=== PATIENT | male | born 1975 | race Caucasian/White ===

== ENCOUNTER 2018-10-29 11:55 | Emergency (ER) | payer MEDICAID, OTHER ==
[2018-10-29] MEDS ORDERED: Bacitracin Oint 1 GM U/D Packet TOP ONE (13:31)
--- NOTE | 2018-10-29 13:31 | EDM.PDOC ---
ED HPI GENERAL MEDICAL PROBLEM - General Chief Complaint: Laceration Stated Complaint: CUT OFF FINGER TIP Time Seen by Provider: 10/29/18 13:26 Source of Information: Reports: Patient, RN Notes Reviewed History Limitations: Reports: No Limitations - History of Present Illness INITIAL COMMENTS - FREE TEXT/NARRATIVE: 43-year-old gentleman presents to the emergency department today with complaint of amputation of his little finger, he injured himself with a hairpiece stylist Ge happened about one hour prior - Related Data Allergies Allergy/AdvReac Type Severity Reaction Status Date / Time Penicillins Allergy Nausea and Verified 10/29/18 13:09 Vomiting Home Meds: Home Meds NK [No Known Home Meds] 10/29/18 [History] Past Medical History - Past Health History Medical/Surgical History: Denies Medical/Surgical History Social & Family History - Tobacco Use Smoking Status *Q: Current Every Day Smoker Years of Tobacco use: 20 Packs/Tins Daily: 0.5 ED ROS GENERAL - Review of Systems Review Of Systems: See Below Constitutional: Reports: No Symptoms Musculoskeletal: Reports: Hand Pain ED EXAM, SKIN/RASH Exam: See Below Text/Narrative:: Examination of the right hand is full range of motion digits 1 through 5 however the distal tip of digit #5 is missing he does not know where the remainder of the tip is radial pulse is +2 Exam Limited By: No Limitations General Appearance: Alert, WD/WN, No Apparent Distress Course - Vital Signs Last Recorded V/S: Last Vital Signs Temp 96.6 F 10/29/18 12:58 Pulse 65 10/29/18 12:58 Resp 16 10/29/18 12:58 BP 145/69 H 10/29/18 12:58 Pulse Ox 97 10/29/18 12:58 - Orders/Labs/Meds Orders: Active Orders 24 hr Category Date Time Status Fingers Fifth Digit Rt F9 [CR] Stat Exams 10/29/18 13:29 Taken Meds: Medications Discontinued Medications Generic Name Dose Route Start Last Admin Trade Name Freq PRN Reason Stop Dose Admin Bacitracin 1 dose 10/29/18 13:31 Bacitracin Oint 1 Gm TOP 10/29/18 13:32 ONETIME ONE Lidocaine HCl 5 ml 10/29/18 13:31 Xylocaine-Mpf 1% INJECT 10/29/18 13:32 ONETIME ONE Departure - Departure Time of Disposition: 14:38 Disposition: Home, Self-Care 01 Condition: Fair Clinical Impression: Amputation of right little finger - Discharge Information Referrals: PCP,None [Primary Care Provider] - Forms: ED Department Discharge Additional Instructions: Use ibuprofen for baseline pain control, use hydrocodone for breakthrough pain, please follow-up with orthopedic clinic next week - My Orders Last 24 Hours: My Active Orders 10/29/18 13:29 Fingers Fifth Digit Rt F9 [CR] Stat - Assessment/Plan Last 24 Hours: My Active Orders 10/29/18 13:29 Fingers Fifth Digit Rt F9 [CR] Stat Plan: Assessment Acuity = acute Site and laterality = distal tip amputation digit #5 right hand Etiology = trauma with a hairpiece stylist Ge Manifestations = none Location of injury = Home Lab values = x-ray shows partial amputation of the distal phalange right hand digit #[address] Jewell presented to the emergency department at 1400 for an evaluation patient gave him options to follow-up with him in clinic next week, prescription written for hydrocodone 5/325 one tab by mouth 3 times a day when necessary total #10 This note was dictated using [employer] voice recognition software please call with any questions on syntax or grammar.
--- NOTE | 2018-10-29 15:03 | CRLCR ---
HISTORY: Right finger amputation. COMPARISON: None available. FINDINGS: The right 5th finger is examined with PA, lateral, and oblique views. There has been amputation of the tip of the 5th finger with absence of the tuft. The shaft of the 5th distal phalanx is present, without any additional fracture. There is a tiny 1 millimeter radiodensity seen along the anterior aspect of the tip of the 5th finger in the area of soft tissue avulsion, consistent with a tiny foreign body. There is no sign of additional radiopaque foreign body in the soft tissues. There is no sign of additional fracture or dislocation. The soft tissues elsewhere in the 5th finger are normal in appearance without sign of radio-opaque foreign body. No significant degenerative disease is seen. IMPRESSION: Amputation of the tuft of the 5th distal phalanx. Tiny 1 millimeter radiopaque foreign body in the tip of the soft tissues in the area of soft tissue avulsion overlying the distal shaft of the distal phalanx. Dictated by Mazin Altamirano MD @ Oct 29 2018 2:59PM Signed by Dr. Mazin Altamirano @ Oct 29 2018 3:02PM
== END 2018-10-29 15:07 | disposition home or self-care (01) ==
LOC: JP.ED 11:55
DX: S68.626A Partial traumatic transphalangeal amputation of right little finger, initial encounter (principal); W27.8XXA Contact with other nonpowered hand tool, initial encounter; Z88.0 Allergy status to penicillin
CPT/HCPCS: 73140-F9; 99284